=== PATIENT | female | born 1980 | race Caucasian/White ===

== ENCOUNTER 2018-04-22 14:33 | Emergency (ER) | payer BC ==
[2018-04-22 14:43] VITALS: O2SAT 100; BMI 19.8
[2018-04-22] MEDS ORDERED: guaiFENesin DM 100 mg-10 mg/5 ml UD PO STA (15:11)
--- NOTE | 2018-04-22 15:28 | ED PDOC ---
HPI: CCC, URI, Sore Throat Time Seen by Provider: 04/22/18 14:49 Chief Complaint (Nursing): Chest Pain History Per: Patient History/Exam Limitations: no limitations Additional Complaint(s): 37 year old F with no PMHx presenting with cough x 1 month. States she has already been on two rounds of antibiotics (Augmentin and Azithromycin) but has not helped. States she was at an Urgent Care last week and was prescribed the second round of antibioitcs. Yesterday she states that she had 3 episodes of sharp chest pain but it lessened today. Was sent here from Urgent Care to rule out pulmonary embolism. Traveled from [place] 1.5 months ago, no recent surgery, immobilization. Past Medical History Reviewed: Historical Data, Nursing Documentation, Vital Signs Vital Signs: Last Vital Signs Temp 98 F 04/22/18 14:42 Pulse 69 04/22/18 14:42 Resp 16 04/22/18 14:42 BP 105/63 04/22/18 14:42 Pulse Ox 100 04/22/18 14:42 - Medical History PMH: Anxiety, Depression - Family History Family History: States: No Known Family Hx - Allergies Allergies/Adverse Reactions: Allergies Allergy/AdvReac Type Severity Reaction Status Date / Time No Known Allergies Allergy Verified 04/22/18 15:01 Review of Systems ROS Statement: Except As Marked, All Systems Reviewed And Found Negative Cardiovascular: Positive for: Chest Pain Respiratory: Positive for: Cough Physical Exam - Reviewed Nursing Documentation Reviewed: Yes Vital Signs Reviewed: Yes - Physical Exam Appears: Positive for: Well, Non-toxic, No Acute Distress Head Exam: Positive for: ATRAUMATIC, NORMAL INSPECTION, NORMOCEPHALIC Skin: Positive for: Normal Color, Warm, DRY Eye Exam: Positive for: EOMI, Normal appearance, PERRL ENT: Positive for: Normal ENT Inspection Neck: Positive for: Normal, Painless ROM Cardiovascular/Chest: Positive for: Regular Rate, Rhythm Respiratory: Positive for: CNT, Normal Breath Sounds Gastrointestinal/Abdominal: Positive for: Normal Exam, Soft Back: Positive for: Normal Inspection Extremity: Positive for: Normal ROM Neurologic/Psych: Positive for: Alert, house player II-XII, Oriented. Negative for: Motor/Sensory Deficits - Laboratory Results Result Diagrams: 04/22/18 15:21 04/22/18 15:21 - ECG ECG Rhythm: Positive for: Normal QRS, Normal ST Segment, Sinus Rhythm Rate: 75 O2 Sat by Pulse Oximetry: 100 Pulse Ox Interpretation: Normal Medical Decision Making Medical Decision MakinPM Patient presenting with cough and chest pain --Well appaering, normal vitals, normal EKG --Will check labs to rule out DVT --Likely patient having viral illness causing cough 4PM --D Dimer slightly elevated, CTA ordered 5PM --Endorsed to DR. Collins pending CTA and re-eval Disposition - Clinical Impression Clinical Impression: Cough - Patient ED Disposition Is Patient to be Admitted: Transfer of Care - Disposition Disposition: Transfer of Care Disposition Time: 17:00 Condition: STABLE Forms: [email or web address] (Pashto) Patient Signed Over To: Shweta Collins Handoff Comments: pending CTA results and re-eval
[2018-04-22 15:50] LABS: BASO % 0.8 % (0.0-2.0); EOS # 0.1 K/uL (0.0-0.7); HEMOGLOBIN 11.3 g/dL (12.0-16.0); LYMPH # 1.5 K/uL (1.0-4.3); LYMPH % 26.9 % (20.0-40.0); MEAN CELL VOLUME 83.2 fl (81.0-99.0); MEAN CORPUSCULAR HEMOGLOBIN 27.2 pg (27.0-31.0); MEAN CORPUSCULAR HGB CONC 32.7 g/dL (33.0-37.0); MEAN PLATELET VOLUME 8.9 fl (7.2-11.7); MONO # 0.3 K/uL (0.0-0.8); MONO % 6.1 % (0.0-10.0); NEUT # 3.7 K/uL (1.8-7.0); NEUT % 65.2 % (50.0-75.0); NRBC % 0.1 % (0.0-0.0); RBC 4.15 Mil/uL (3.80-5.20); RED CELL DISTRIBUTION WIDTH 14.2 % (11.5-14.5); WHITE BLOOD COUNT 5.7 K/uL (4.8-10.8)
[2018-04-22 15:59] LABS: BLOOD UREA NITROGEN 12 mg/dl (7-17); CALCIUM 9.3 mg/dL (8.4-10.2); GFR NON-AFRICAN AMERICAN > 60
[2018-04-22] MEDS ORDERED: Sodium Chloride 0.9% 50 ML IV ONE (16:26)
[2018-04-22] MEDS ORDERED: Iodixanol 320 MG/ML 100 ML BOTTLE IV ONE (16:26)
--- NOTE | 2018-04-22 17:22 | CT ---
Date of service: 04/22/2018 PROCEDURE: CT Chest with contrast (Pulmonary Angiogram) HISTORY: elevated dimer, chest pain COMPARISON: None available. TECHNIQUE: Axial computed tomography images were obtained of the chest in the pulmonary arterial phase of enhancement. Coronal and sagittal reformatted images were created and reviewed. Intravenous contrast dose: Radiation dose: Total exam DLP = 184.01 mGy-cm. This CT exam was performed using one or more of the following dose reduction techniques: Automated exposure control, adjustment of the mA and/or kV according to patient size, and/or use of iterative reconstruction technique. FINDINGS: PULMONARY ARTERIES: The visualized pulmonary trunk, right and left main, lobar, segmental and proximal subsegmental branches of the pulmonary arteries are well opacified with no filling defects seen to suggest acute central pulmonary embolus. Pulmonary trunk measures approximately 2.4 cm. AORTA: No acute findings. No thoracic aortic aneurysm. Ascending thoracic aorta measures approximately 2.9 cm and descending thoracic aorta measures approximately 2.0 cm. No significant aortic atherosclerotic calcification or mural plaque present. LUNGS: There are 2 nodular lesions seen in the right upper lobe the more inferior and anteriorly located lesion measures approximately 12 mm and the more posterior and superiorly located lesion measures approximately 11 mm. There appears to be a somewhat linear area of soft tissue density that extends between these 2 nodules. Findings could be postinflammatory however the possibility of a neoplastic process cannot be excluded. Follow-up PET-CT scan may be prudent. Alternately, biopsy could be obtained the more superior and posteriorly located lesion is more amenable given its proximity to the pleural surface.. Small approximately 3 mm pleural based nodular density left posterior lung apex/upper lobe region. There is also some mild linear atelectasis/scarring seen in the middle lobe and lingular regions as well as left lung base. PLEURAL SPACES: Unremarkable. No effusion or pneumothorax. HEART: Heart size is within range of normal. No significant pericardial effusion.. No significant pericardial effusion. LYMPH NODES: No significant mediastinal or hilar adenopathy identified. The trachea is midline and patent with no large central endoluminal lesions. There is a small hiatal hernia. BONES, CHEST WALL: Minor multilevel degenerative spondylosis of the thoracic spine OTHER FINDINGS: Unremarkable. IMPRESSION: No evidence of acute central pulmonary embolus. There are 2 nodular lesions seen in the right upper lobe the more inferior and anteriorly located lesion measures approximately 12 mm and the more posterior and superiorly located lesion measures approximately 11 mm. There appears to be a somewhat linear area of soft tissue density that extends between these 2 nodules. Findings could be postinflammatory however the possibility of a neoplastic process cannot be excluded. Follow-up PET-CT scan may be prudent. Alternately, biopsy could be obtained the more superior and posteriorly located lesion is more amenable given its proximity to the pleural surface. There is also some mild linear atelectasis/scarring seen in the middle lobe and lingular regions as well as left lung base.
--- NOTE | 2018-04-22 18:27 | ED PDOC ---
- Laboratory Results Result Diagrams: 04/22/18 15:21 04/22/18 15:21 - ECG O2 Sat by Pulse Oximetry: 100 Disposition - Clinical Impression Clinical Impression: Chest pain, Cough - Disposition Referrals: [facility] [Outside] Alexandria Roberto MD [Staff Provider] - Condition: STABLE Prescriptions: guaiFENesin/Dextromethorphan [guaiFENesin-DM] 10 ml PO TID PRN #1 bottle PRN Reason: Cough Instructions: Chest Pain, Cough, Adult (DC) Forms: [employer] (Lao) Addendum Addendum: 04/22/18 17:00 Pt signed out by Dr. Ruiz pending CT. Accession No. : [id number] Patient Name / ID : SE YAP / [id number] Exam Date : 04/22/2018 16:34:04 ( Approved ) Study Comment : Sex / Age : F / 37Y Creator : Tree Blackburn MD Dictator : Tree Blackburn MD Attraction Attendant : Laceworker : Tree Blackburn MD Approver2 : Report Date : 04/22/2018 17:18:37 My Comment : Date of service: 04/22/2018 PROCEDURE: CT Chest with contrast (Pulmonary Angiogram) HISTORY: elevated dimer, chest pain COMPARISON: None available. TECHNIQUE: Axial computed tomography images were obtained of the chest in the pulmonary arterial phase of enhancement. Coronal and sagittal reformatted images were created and reviewed. Intravenous contrast dose: Radiation dose: Total exam DLP = 184.01 mGy-cm. This CT exam was performed using one or more of the following dose reduction techniques: Automated exposure control, adjustment of the mA and/or kV according to patient size, and/or use of iterative reconstruction technique. FINDINGS: PULMONARY ARTERIES: The visualized pulmonary trunk, right and left main, lobar, segmental and proximal subsegmental branches of the pulmonary arteries are well opacified with no filling defects seen to suggest acute central pulmonary embolus. Pulmonary trunk measures approximately 2.4 cm. AORTA: No acute findings. No thoracic aortic aneurysm. Ascending thoracic aorta measures approximately 2.9 cm and descending thoracic aorta measures approximately 2.0 cm. No significant aortic atherosclerotic calcification or mural plaque present. LUNGS: There are 2 nodular lesions seen in the right upper lobe the more inferior and anteriorly located lesion measures approximately 12 mm and the more posterior and superiorly located lesion measures approximately 11 mm. There appears to be a somewhat linear area of soft tissue density that extends between these 2 nodules. Findings could be postinflammatory however the possibility of a neoplastic process cannot be excluded. Follow-up PET-CT scan may be prudent. Alternately, biopsy could be obtained the more superior and posteriorly located lesion is more amenable given its proximity to the pleural surface.. Small approximately 3 mm pleural based nodular density left posterior lung apex/upper lobe region. There is also some mild linear atelectasis/scarring seen in the middle lobe and lingular regions as well as left lung base. PLEURAL SPACES: Unremarkable. No effusion or pneumothorax. HEART: Heart size is within range of normal. No significant pericardial effusion.. No significant pericardial effusion. LYMPH NODES: No significant mediastinal or hilar adenopathy identified. The trachea is midline and patent with no large central endoluminal lesions. There is a small hiatal hernia. BONES, CHEST WALL: Minor multilevel degenerative spondylosis of the thoracic spine OTHER FINDINGS: Unremarkable. IMPRESSION: No evidence of acute central pulmonary embolus. There are 2 nodular lesions seen in the right upper lobe the more inferior and anteriorly located lesion measures approximately 12 mm and the more posterior and superiorly located lesion measures approximately 11 mm. There appears to be a somewhat linear area of soft tissue density that extends between these 2 nodules. Findings could be postinflammatory however the possibility of a neoplastic process cannot be excluded. Follow-up PET-CT scan may be prudent. Alternately, biopsy could be obtained the more superior and posteriorly located lesion is more amenable given its proximity to the pleural surface. There is also some mild linear atelectasis/scarring seen in the middle lobe and lingular regions as well as left lung base. Findings and need for urgent follow-up discussed with patient and . Copy of report given to patient.
[2018-04-22 18:43] VITALS: BP 113/66; PULSE 69; RESP 16; TEMP 97.6
== END 2018-04-22 19:03 | disposition home or self-care (01) ==
LOC: H.ER 14:33
DX: R05 Cough (principal); Z86.59 Personal history of other mental and behavioral disorders
CPT/HCPCS: 71275; 80048; 81025; 84484; 85025; 85378; 99284; Q9967